=== PATIENT | female | born 1995 ===

== ENCOUNTER 2018-09-30 12:14 | Emergency (ER) | payer SELFPAY ==
--- NOTE | 2018-09-30 13:10 | RAD ---
FXR Cerv Sp Ap Lat STANDARD History: [Reason For Study] Comparison: None. Findings: No acute fracture or malalignment. The vertebral body heights and disc spaces are maintaine d. Visualized ribs are normal. No apical pneumothorax. Open-mouth odontoid view is normal. Impression: No acute fracture or malalignment.
== END 2018-09-30 13:57 | disposition home or self-care (01) ==
LOC: ERS 12:14
DX: S09.90XA Unspecified injury of head, initial encounter (principal); S16.1XXA Strain of muscle, fascia and tendon at neck level, initial encounter; W01.0XXA Fall on same level from slipping, tripping and stumbling without subsequent striking against object, initial encounter
CPT/HCPCS: 72040